=== PATIENT | male | born 1945 | race Caucasian/White ===

== ENCOUNTER 2018-12-21 07:25 | Emergency (ER) | payer OTHER, SELFPAY ==
[2018-12-21 07:28] VITALS: BP 141/78; PULSE 72; RESP 15; TEMP 36.6; O2SAT 97
--- NOTE | 2018-12-21 07:53 | ED.GENADUL_ITS ---
Discharge Plan Disposition Patient Disposition: HOME Condition: Stable Discharge Details Chief Complaint: RashLesion Clinical Impression: Rash Primary Care Provider: Natacha Lynch ED Provider: Alena Graham Home Meds and New Rx's Prescriptions: New permethrin 5 % cream 1 applic TP Q14D 0 Days Qty: 60 RF: 0 prednisone 10 mg tablet See Rx Instructions .ROUTE .COMPLEX Qty: 42 RF: 0 Continued atenolol 25 mg tablet 25 mg PO DAILY RF: 0 ibuprofen 600 mg tablet 600 mg PO TID PRNRF: 0 clotrimazole 1 % cream 1 applic TP BID PRNRF: 0 amlodipine 5 mg tablet 5 mg PO DAILY RF: 0 atorvastatin 10 mg tablet 10 mg PO QPM RF: 0 fluticasone propionate 50 mcg/actuation spray,suspension 1 spray KENYA BID RF: 0 triamcinolone acetonide 0.5 % cream 1 applic TP DAILY PRNRF: 0 vit A and D3 in cod liver oil [cod liver oil] 1 EACH capsule 1 cap PO DAILY RF: 0 psyllium husk [Metamucil] 0.52 GM capsule 6 cap PO DAILY RF: 0 aspirin [Aspir-81] 81 MG tablet,delayed release (DR/EC) 81 mg PO HS RF: 0 Centrum Silver 1 EACH tablet 1 tab PO DAILY RF: 0 Discharge Instructions Instructions: Poison Shannan (ED), Scabies (ED), Acute Rash (ED) Additional Instructions: Take Benadryl as needed and directed for itching. Use the permethrin cream as directed. If you have no relief in symptoms, start the steroids and take until finished. Follow-up with your primary care doctor in 2 days for reevaluation. Return immediately to the emergency department if you develop any worsening or new concerning symptoms. Discharge Data Discharge Date/Time-TO BE ENTERED AT DEPARTURE: 12/21/18 08:08 Discharge Physician: Alena Graham Medical Decision Making 73-year-old male who presents with pruritic rash to torso and upper extremities for the past week. States the papules have come and gone and that he wakes up with new bumps each morning. States he feels like these are appear consistent with bites and he is concerned about scabies. Denies any other new exposures or travel. Denies fever. Differential diagnoses includes bug bites, poison dermatitis, other unknown contact dermatitis or less likely scabies. There are scattered papules to extremities and torso in addition to clustered pa pules. Most likely appears consistent with poison shannan. He denies any exposure to poison shannan, but does have 3 dogs and may have come in contact with this. Rash does not appear consistent with scabies as there is no linear rash c/w burrowing or within webspaces of hands or complaint of rash in groin or feet. Patient is requesting treatment for scabies. We will send home with a prescription for permethrin. He is instructed to wash all his bedding and towels. He is instructed that if symptoms do not improve or worsen, to start the steroids. He is instructed to follow-up with his primary care doctor in 2 days and to return here if worse. HPI General Mode of arrival: ambulatory . Date/Time Provider Initiated Documentation: 12/21/18 07:30 . Limitations to Documentation: no limitations . Information obtained by: patient . HPI Narrative: Patient is a 73-year-old male who presents the ED with a pruritic rash for the past 2 weeks. He states that every morning he wakes up and finds a few more bumps which he considers bites. Patient states he feels that the rashes possibly due to scabies. States he has 3 dogs at home including a new puppy who he is concerned who may have this. Denies any known exposure to poison shannan, new soaps, new detergents, new lotions, recent travel, fever, cold-like symptoms, chest pain or abdominal pain. He has not used any medication for his symptoms yet. Related Data Home Medications Medication Instructions Recorded Confirmed vit A and D3 in cod liver oil [cod 1 cap PO DAILY 10/07/12 12/21/18 liver oil] Centrum Silver 1 tab PO DAILY 03/30/13 12/21/18 aspirin [Aspir-81] 81 mg PO HS 03/30/13 12/21/18 psyllium husk [Metamucil] 6 cap PO DAILY 07/24/17 12/21/18 amlodipine 5 mg tablet 5 mg PO DAILY 03/04/18 12/21/18 atenolol 25 mg tablet 25 mg PO DAILY 03/04/18 12/21/18 atorvastatin 10 mg tablet 10 mg PO QPM tab 03/04/18 12/21/18 clotrimazole 1 % topical cream 1 applic TP BID PRN 03/04/18 12/21/18 fluticasone propionate 50 1 spray KENYA BID gm 03/04/18 12/21/18 mcg/actuation nasal spray,suspension ibuprofen 600 mg tablet 600 mg PO TID PRN 03/04/18 12/21/18 triamcinolone acetonide 0.5 % 1 applic TP DAILY PRN 03/04/18 12/21/18 topical cream permethrin 1 applic TP Q14D 0 Days #60 gm 12/21/18 prednisone See Rx Instructions .ROUTE 12/21/18 .COMPLEX #42 tab Previous Rx's Medication Instructions Recorded permethrin 1 applic TP Q14D 0 Days #60 gm 12/21/18 prednisone See Rx Instructions .ROUTE 12/21/18 .COMPLEX #42 tab Allergies Allergy/AdvReac Type Severity Reaction Status Date / Time tomato Allergy Hives Unverified 12/21/18 07:35 General Stated Complaint: RashLesion HEVER: 4 Review of Systems Review of Systems All systems reviewed & are unremarkable except as noted in HPI and below Constitutional Reports as per HPI, Denies chills and Denies fever(s) Eyes Denies blurry vision ENT Denies dizziness, Denies sore throat and Denies throat swelling Cardiovascular Denies chest pain and Denies dyspnea Respiratory Denies cough and Denies dyspnea Gastrointestinal Denies abdominal pain, Denies diarrhea and Denies vomiting Genitourinary Denies hematuria and Denies dysuria Musculoskeletal Denies back pain and Denies numbness Integumentary/Breasts Denies lesions and Denies rash Neurologic Denies dizziness, Denies focal weakness and Denies numbness Allergic/Immunologic Denies throat swelling FORMERLY [facility], [facility]–1983 Medical History HTN (hypertension) (Chronic) High cholesterol (Chronic) Surgical History History of adenoidectomy (Acute) History of prostate biopsy (Acute) History of tonsillectomy (Chronic) Tonsillectomy and adenoidectomy Family History Mother Essential hypertension Leukemia Stroke Father Essential hypertension Heart disease Neoplasm Paternal Grandfather Essential hypertension Heart disease Paternal Grandmother Heart disease Maternal Grandfather No problems noted. Maternal Grandmother No problems noted. Social History Smoking/Tobacco Use Status: Former Tobacco Use Quit Date: 06/24/73 Alcohol Intake: current Alcohol Intake frequency: a few times a week Alcohol type: beer, wine and hard liquor Drug use: Never Substance use type: does not use Household members: spouse and other Details: 2 Pets and animals: Yes Pets and animals: dog(s) Sexually active: Yes Do you think of yourself as: straight/heterosexual Current gender identity: male What is your relationship status?: How often do you talk on the phone with friends or family?: three or more times per week How often do you get together with friends or relatives?: twice per week How often do you attend advent or baptist services?: 4 or more times per year Do you belong to any clubs or organized social groups?: yes Panel score (0-1 are the most socially isolated patients): 4 What type of physical activity do you participate in: walking Duration: 30-45 minutes/day Frequency: 1-2 times per week Xiao/Pentecostalism: Caodaism Special xiao needs: No Do you feel safe at home: Yes Do you feel safe in your relationship?: Yes Exam Const General: cooperative, healthy appearing and no acute distress HENMT Head: normal to inspection Mouth: oral mucosae normal Eyes General: appearance normal, both eyes and all related structures Neck Neck: normal visual inspection Resp Effort & Inspection: normal respiratory effort and able to speak in complete sentences Cardio Rate: regular rate Skin Other: Scattered erythematous papules noted to bilateral upper extremities anterior posterior chest and back. Scattered areas appear clustered with vesicles and crusting. No abscess, drainage or bleeding. Neuro General: alert, awake and oriented x3 Motor: muscle tone normal throughout Extrem General: normal to inspection and full ROM Psych Appearance: grossly normal Affect: normal affect Course Vital Signs Temperature 97.9 F 12/21/18 07:28 Pulse 72 12/21/18 07:28 Respiratory Rate 15 12/21/18 07:28 Blood Pressure 141/78 H 12/21/18 07:28 Pulse Oximetry 97 12/21/18 07:28 Temperature 97.9 F 12/21/18 07:28 Temperature Source Temporal Artery Scan 12/21/18 07:28 Pulse 72 12/21/18 07:28 Respiratory Rate 15 12/21/18 07:28 Respiratory Effort Non-Labored 12/21/18 07:34 Blood Pressure 141/78 H 12/21/18 07:28 Blood Pressure Position Sitting 12/21/18 07:28 Pulse Oximetry 97 12/21/18 07:28 Oxygen Delivery Method Room Air 12/21/18 07:28 Oxygen Flow Rate 0 12/21/18 07:28 Pain Level 0 12/21/18 07:28
== END 2018-12-21 08:08 | disposition home or self-care (01) ==
LOC: ER 08:06
PROVIDERS: Emergency Provider Physician Assistant; PCP Family Medicine
DX: L23.7 Allergic contact dermatitis due to plants, except food (principal)
CPT/HCPCS: 99283

== ENCOUNTER 2022-09-09 09:23 | Emergency (ER) | payer MEDICARE, SELFPAY ==
[2022-09-09 09:27] VITALS: BP 136/80; PULSE 83; RESP 18; O2SAT 97
--- NOTE | 2022-09-09 09:43 | W.ED.GENAD ---
Discharge Plan Disposition Patient Disposition: Home Condition: Stable Discharge Details Clinical Impression: Abscess Primary Care Provider: Benja Etienne ED Provider: Kenny Washington Scott Meds and New Rx's Prescriptions: New clindamycin HCl 150 mg capsule 450 mg PO TID 7 Days Qty: 63 0RF Continued atenolol 25 mg tablet 25 mg PO DAILY ibuprofen 600 mg tablet 600 mg PO TID PRN clotrimazole 1 % cream 1 applic TP BID PRN atorvastatin 10 mg tablet 10 mg PO QPM triamcinolone acetonide 0.5 % cream 1 applic TP DAILY PRN fluticasone propionate 50 mcg/actuation spray,suspension 1 spray KENYA DAILY PRN cholecalciferol (vitamin D3) 1,000 unit capsule 1,000 unit PO DAILY vit A and D3 in cod liver oil [cod liver oil] 1 EACH capsule 1 cap PO DAILY psyllium husk [Metamucil] 0.52 GM capsule 6 cap PO DAILY amlodipine 10 mg tablet 10 mg PO DAILY Qty: 90 0RF Centrum Silver 1 EACH tablet 1 tab PO DAILY Discharge Instructions Instructions: Abscess (ED) Additional Instructions: I drained a significant amount of pus from the cyst follow up as you are already planning to have it removed if you feel more ill, have severe worsening pain or fevers return to the emergency department Medical Decision Making 76 yo male who states he's had a cyst on his posterior left neck for months and trying to have it removed as an outpatient comes in with 2-3 days of it being more painful and swollen. No fevers, chills, drainage. HE arrives stable and appears well on exam. HE has a 1cm fluctuance on the left posterior lateral neck with a white head on it and 2mm surrounding erythema. Bedside u/s shows clear fluid pocket. No crepitus and no systemic symptoms to suggest nec fasc or sepsis. HE consents to having an I and D which was done without complications and returned significant amount of pus. Will place on clindamycin and advised to f/u with pcp, return precautions given Differential Diagnosis Differential Diagnosis: abscess, cyst HPI General Mode of arrival: ambulatory. Date/Time Provider Initiated Documentation: 09/09/22 09:27. Limitations to Documentation: no limitations. Information obtained by: patient. History of Present Illness 76 year old M presents to the emergency department with the chief complaint of neck lesion, described as moderate, Patient reports no radiation. Patient started experiencing this month(s) (5) No relieving factors improve symptom(s), No exacerbating factors reported . Patient notes no other symptoms.. Patient did receive the following treatments prior to arrival, none Related Data Home Medications Medication Instructions Recorded Confirmed vitamins A and D3 in cod liver oil 1 cap PO DAILY 10/07/12 09/09/22 1,250 unit-135 unit capsule (cod liver oil) [id number]-zqk-ggdjo acid 0.4 1 tab PO DAILY 03/30/13 09/09/22 mg-lycopene 300 mcg-lutein 250 mcg tablet (Centrum Silver) psyllium husk 0.52 gram capsule 6 cap PO DAILY 07/24/17 09/09/22 (Metamucil) atenolol 25 mg tablet 25 mg PO DAILY 03/04/18 09/09/22 atorvastatin 10 mg tablet 10 mg PO QPM 03/04/18 09/09/22 clotrimazole 1 % topical cream 1 applic topical BID PRN 03/04/18 09/09/22 ibuprofen 600 mg tablet 600 mg PO TID PRN 03/04/18 09/09/22 triamcinolone acetonide 0.5 % 1 applic topical DAILY PRN 03/04/18 09/09/22 topical cream cholecalciferol (vitamin D3) 25 1,000 unit PO DAILY 01/08/19 09/09/22 mcg (1,000 unit) capsule fluticasone propionate 50 1 spray intranasal DAILY PRN 01/08/19 09/09/22 mcg/actuation nasal spray,suspension amlodipine 10 mg tablet 10 mg PO DAILY #90 tabs 08/27/19 09/09/22 clindamycin HCl 150 mg capsule 450 mg PO TID 7 days #63 caps 09/09/22 Previous Rx's Medication Instructions Recorded amlodipine 10 mg tablet 10 mg PO DAILY #90 tabs 08/27/19 clindamycin HCl 150 mg capsule 450 mg PO TID 7 days #63 caps 09/09/22 Allergies Allergy/AdvReac Type Severity Reaction Status Date / Time tomato Allergy Hives Unverified 09/09/22 09:32 General Stated Complaint: Cellulitis HEVER: 3 Review of Systems All systems reviewed & are unremarkable except as noted in HPI and below Constitutional Constitutional: Denies chills, Denies fever(s) and Denies weakness Cardiovascular Cardiovascular: Denies chest pain and Denies dyspnea Respiratory Respiratory: Denies cough and Denies dyspnea Gastrointestinal Gastrointestinal: Denies abdominal pain, Denies nausea and Denies vomiting Genitourinary Genitourinary: Denies dysuria Musculoskeletal Musculoskeletal: Denies joint swelling Neurologic Neurologic: Denies weakness [facility] All Active Problems (Updated 09/09/22 @ 10:01 by Kenny Washington MD) Abscess (Acute) Allergic rhinitis (Acute) Pruritus ani (Acute) Diagnosed managed by dermatology-treated with as needed topical steroid Health maintenance examination (Acute) Patient receives much of his primary care including routine lab work and follow-up on specialists with the [place] in [facility], and [facility] 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 Hearing loss (Acute) hearing aids Diverticulitis of intestine (Acute 12/06/14) Remote history Hyperlipidemia (Acute) Essential hypertension (Acute 09/21/13) Actinic keratosis (Acute) Medical History (Updated 09/09/22 @ 10:01 by Kenny Washington MD) High cholesterol HTN (hypertension) Surgical History (Updated 08/25/21 @ 08:30 by Mak Pepe MD) History of adenoidectomy History of prostate biopsy History of tonsillectomy Tonsillectomy and adenoidectomy Family History (Updated 08/17/20 @ 11:10 by Carolina Muñoz) Mother , 78 Essential hypertension Leukemia Stroke Father , 95 Essential hypertension Heart disease Bladder cancer Paternal Grandfather Essential hypertension Heart disease Paternal Grandmother , 93 Heart disease Maternal Grandfather No problems noted. Maternal Grandmother No problems noted. Son No problems noted. Daughter No problems noted. Son No problems noted. Social History (Updated 08/26/21 @ 12:02 by Deepali Levy) Smoking/Tobacco Use Status: Former Tobacco Use tobacco type: pipe Quit Date: 06/24/73 Tobacco: How many years used: 5 Second Hand Exposure: Yes Smoking risk assessment performed?: Yes Alcohol Intake: current Alcohol Intake frequency: holidays/special occasions only Alcohol type: beer, wine and hard liquor Drug use: Never Substance use type: does not use Caregiver/Support person: No Household members: spouse Housing: house Communication Needs: Hard of Hearing Do you need help understanding health information?: Never Pets and animals: Yes Pets and animals: dog(s) Sexually active: No Do you think of yourself as: straight/heterosexual What is your relationship status?: How often do you talk on the phone with friends or family?: three or more times per week How often do you get together with friends or relatives?: decline to answer How often do you attend caodaism or jainism services?: 4 or more times per year Do you belong to any clubs or organized social groups?: yes Panel score (0-1 are the most socially isolated patients): 4 What type of physical activity do you participate in: walking Duration: 30-45 minutes/day Frequency: 3-4 times per week Xiao/Catholic: Latter Day Special xiao needs: No Seatbelt use: always Helmet use: No Drive intox or ride w/intox short haul driver: No Do you feel safe at home: Yes Do you feel safe in your relationship?: Yes Exam Const General: no acute distress Orientation: alert HENMT Head: normal to inspection Ears: external ears normal General nose exam: external nose normal Mouth: moist mucous membranes Eyes General: appearance normal, both eyes and all related structures Neck Neck: full ROM, no lymphadenopathy and no meningeal signs Resp Effort & Inspection: normal respiratory effort and able to speak in complete sentences Cardio Rate: regular rate Skin General skin exam: elasticity normal Neuro General: patient alert and patient oriented x3 Extrem General: normal to inspection Psych Mental Status: mental status grossly normal Course Vital Signs Vital signs: Vital Signs Pulse 83 09/09/22 09:27 Respiratory Rate 18 09/09/22 09:27 Blood Pressure 136/80 09/09/22 09:27 Pulse Oximetry 97 09/09/22 09:27 Pulse 83 09/09/22 09:27 Respiratory Rate 18 09/09/22 09:27 Respiratory Effort Normal, Non-Labored 09/09/22 09:32 Blood Pressure 136/80 09/09/22 09:27 Blood Pressure Position Sitting 09/09/22 09:27 Pulse Oximetry 97 09/09/22 09:27 Oxygen Delivery Method Room Air 09/09/22 09:27 Oxygen Flow Rate 0 09/09/22 09:27 Procedures Abscess I/D Site: Neck Side (if applicable): Left Local Anesthetic: Lidocaine 1% and With Epi Amount of anesthesia used (mL): 3 Technique: Incised with #11 Blade Amount of fluid expressed (mL): 5 (purulent material) Irrigation: Yes Packing used?: None POCUS Exam (ED) Limited Soft Tissue Exam DATE OF EXAM: 09/09/22 TIME OF EXAM: 09:44 PROVIDER THAT PERFORMED THE STUDY: Kenny Washington IS THIS A REPEAT EXAM DURING THIS ENCOUNTER: No LOCATION OF EXAM: Neck/left side REASON FOR EXAM: Abscess VISUALIZED STRUCTURES: Skin and Subcutaneous tissue PERTINENT FINDINGS/IMPRESSION: Abscess left neck posterior . Exam Complete DIFFERENTIAL DIAGNOSES: abscess, cyst, cellulitis
== END 2022-09-09 10:11 | disposition home or self-care (01) ==
PROVIDERS: Emergency Provider Emergency Medicine; PCP Family Medicine
DX: L02.212 Cutaneous abscess of back [any part, except buttock and flank] (principal)
CPT/HCPCS: 10060; 76536; 99284; 99283

== ENCOUNTER → 2022-09-18 09:10 | Outpatient (BNVA) | payer MEDICARE, SELFPAY | PROVIDERS: PCP Family Medicine; Referring Provider Family Medicine; Visit Provider Surgery | DX: L72.3 Sebaceous cyst (principal); L08.9 Local infection of the skin and subcutaneous tissue, unspecified | CPT/HCPCS: 99212 ==

== ENCOUNTER → 2022-10-16 10:43 | Outpatient (BNVA) | payer MEDICARE, SELFPAY | PROVIDERS: PCP Family Medicine; Referring Provider Family Medicine; Visit Provider Surgery | DX: Z48.02 Encounter for removal of sutures (principal); L72.3 Sebaceous cyst; L08.9 Local infection of the skin and subcutaneous tissue, unspecified | CPT/HCPCS: 99212 ==

== ENCOUNTER 2023-02-28 17:11 | Emergency (ER) | payer MEDICARE, SELFPAY ==
[2023-02-28 17:15] VITALS: BP 158/74; PULSE 78; RESP 20; TEMP 36.4; O2SAT 95
--- NOTE | 2023-02-28 17:30 | DI.RAD_ITS ---
Exam(s) XR WRIST LT COMPLETE EXAM: XR WRIST LT COMPLETE CLINICAL HISTORY: left wrist pain. TECHNIQUE: 2D digital imaging was performed of the left wrist. Three images were obtained. PA, obl ique and lateral views were obtained. COMPARISON: No exams were available for comparison FINDINGS: BONES: There is an acute intra-articular comminuted fracture of the distal radius. The fracture is i mpacted. No bony destructive lesion is seen. JOINTS: The carpal bones are normally aligned. There are marked degenerative changes of the 1st CMC j oint characterized by joint space narrowing and osteophytes. SOFT TISSUE: Soft tissue swelling of the wrist. IMPRESSION: There is an acute comminuted impacted and intra-articular fracture of the distal radius. DATA REPOSITORY: RADIATION DOSE DELIVERED:
[2023-02-28] MEDS: MORPHine 10 MG/ML VIAL 2 MG IVP (17:47)
--- NOTE | 2023-02-28 18:00 | DI.CT_ITS ---
Exam(s) CT UPPER EXTREMITY LT WO EXAM: CT UPPER EXTREMITY LT WO CLINICAL HISTORY: fracture wrist. TECHNIQUE: Imaging Protocol: Axial computed tomography images with coronal and sagittal reformatted images were created and reviewed. COMPARISON: CR XR WRIST LT COMPLETE from 02/28/2023 FINDINGS: Bones: There is a comminuted intra-articular fracture of the distal radius. The fracture is impacte d. There is anterior displacement of the wrist relative to the distal radius. Bony alignment is sat isfactory. No cellulitic or osteomyelitic changes are identified. Degenerative changes are seen in the wrist which include bony hypertrophic changes and joint space narrowing. Subchondral cysts are p resent throughout the bones. No lytic or sclerotic lesions are identified. Soft Tissues: Soft tissue swelling is seen in the wrist. IMPRESSION: 1. There is a comminuted intra-articular fracture of the distal radius which is impacted. There is a nd mild anterior subluxation of the wrist relative to the distal radius 2. Findings were discussed with the emergency department on the date of the examination. RADIATION DOSE DELIVERED: 147.1mGy.cm Total DLP 147.1mGy.cm Total DLP DATA REPOSITORY: All CT scans at this facility are submitted to the National Radiology Data Registry (NRDR) Dose Index Registry (DIR) with the [employer] ([employer]). RADIATION OPTIMIZATION: All CT scans at this facility use at least one of these dose optimization te chniques: automated exposure control; mA and/or kV adjustment per patient size (includes targeted exa ms where dose is matched to clinical indication); or iterative reconstruction.
--- NOTE | 2023-02-28 22:43 | ED.GENADUL_ITS ---
Discharge Plan Disposition Patient Disposition: Home Condition: Stable Discharge Details Clinical Impression: Fracture of left wrist Primary Care Provider: Benja Etienne ED Provider: Laura Thao Home Meds and New Rx's Prescriptions: Continued atenolol 25 mg tablet 25 mg PO DAILY ibuprofen 600 mg tablet 600 mg PO TID PRN clotrimazole 1 % cream 1 applic TP BID PRN atorvastatin 10 mg tablet 10 mg PO QPM triamcinolone acetonide 0.5 % cream 1 applic TP DAILY PRN doxycycline hyclate 100 mg capsule 200 mg PO ONCE Qty: 2 0RF Rx Instructions: take at once cholecalciferol (vitamin D3) 1,000 unit capsule 1,000 unit PO DAILY vit A and D3 in cod liver oil [cod liver oil] 1 EACH capsule 1 cap PO DAILY psyllium husk [Metamucil] 0.52 GM capsule 6 cap PO DAILY amlodipine 10 mg tablet 10 mg PO DAILY Qty: 90 0RF Centrum Silver 1 EACH tablet 1 tab PO DAILY Discharge Instructions Additional Instructions: Take 1/2 tablet to 1 full tab of oxycodone as needed for pain, do not operate your vehicle for 8 hours after taking this medication May take Tylenol 650 every 6 hours as needed for pain, apply ice, elevate Wear sling when up and about If you elevate your wrist and apply ice it is painful and will help your symptoms No food or drink after 12:00 as you will likely have surgery tomorrow, they will call you to plan your surgery and arrival between 7 and 8 AM, please answer phone Please return earlier should you have dramatic worsening pain, worsening numbness, or with any new or progressing symptoms Referrals: Alonso Lui MD [ [facility] STAFF PHYSICIAN] - Discharge Data Discharge Date/Time-TO BE ENTERED AT DEPARTURE: 02/28/23 19:07 Medical Decision Making This 77-year-old male presents with report of left wrist injury just prior to arrival after he tripped and fell over his dog, he has no additional visible evidence of trauma, GCS 15, alert and oriented, ambulatory with steady gait, no midline cervical spine tenderness, no chest wall tenderness, no back or abdominal tenderness, no visible evidence of lower extremity injury, visible deformity to left wrist, neurovascularly intact, no tenderness left elbow X-ray shows evidence of a intra-articular volar displaced fracture to left wrist, case discussed with Dr. Lui, patient will need operative intervention, he will be n.p.o. after this night, he was placed in a volar splint by me, he remained neurovascularly intact pre and postprocedure, 4 oxycodone were distributed at time of discharge Return precautions reviewed and patient expressed understanding HPI General Date/Time Provider Initiated Documentation: 02/28/23 17:19 . HPI Narrative: This 77-year-old male presents with report of falling on his left wrist while walking the dog. Denies any additional injuries. States he has pain and deformity. Denies numbness or tingling Related Data Home Medications Medication Instructions Recorded Confirmed vitamins A and D3 in cod liver oil 1 cap PO DAILY 10/07/12 11/23/22 1,250 unit-135 unit capsule (cod liver oil) unynotmp-vrs-ujkfd acid 0.4 1 tab PO DAILY 03/30/13 11/23/22 mg-lycopene 300 mcg-lutein 250 mcg tablet (Centrum Silver) psyllium husk 0.52 gram capsule 6 cap PO DAILY 07/24/17 11/23/22 (Metamucil) atenolol 25 mg tablet 25 mg PO DAILY 03/04/18 11/23/22 atorvastatin 10 mg tablet 10 mg PO QPM 03/04/18 11/23/22 clotrimazole 1 % topical cream 1 applic topical BID PRN 03/04/18 11/23/22 ibuprofen 600 mg tablet 600 mg PO TID PRN 03/04/18 11/23/22 triamcinolone acetonide 0.5 % 1 applic topical DAILY PRN 03/04/18 11/23/22 topical cream cholecalciferol (vitamin D3) 25 1,000 unit PO DAILY 01/08/19 11/23/22 mcg (1,000 unit) capsule amlodipine 10 mg tablet 10 mg PO DAILY #90 tabs 08/27/19 11/23/22 doxycycline hyclate 100 mg capsule 200 mg PO ONCE #2 caps 11/23/22 11/23/22 Previous Rx's Medication Instructions Recorded amlodipine 10 mg tablet 10 mg PO DAILY #90 tabs 08/27/19 doxycycline hyclate 100 mg capsule 200 mg PO ONCE #2 caps 11/23/22 Allergies Allergy/AdvReac Type Severity Reaction Status Date / Time lisinopril Allergy Mild Other (See Verified 11/23/22 08:56 Comment) tomato Allergy Hives Unverified 11/23/22 08:56 General Stated Complaint: Orthopedic HEVER: 4 PFSH All Active Problems (Updated 02/28/23 @ 18:54 by DENISE Hopkins) Fracture of left wrist (Acute) Black head (Acute) Infected sebaceous cyst of skin (Acute) Sensorineural hearing loss (Acute) Arthritis (Acute) Sebaceous cyst (Acute) Allergic rhinitis (Acute) Pruritus ani (Acute) Diagnosed managed by dermatology-treated with as needed topical steroid Health maintenance examination (Acute) Patient receives much of his primary care including routine lab work and follow-up on specialists with the [place] in [facility], and [facility] 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 Hearing loss (Acute) hearing aids Diverticulitis of intestine (Acute 12/06/14) Remote history Hyperlipidemia (Acute) Essential hypertension (Acute 09/21/13) Actinic keratosis (Acute) Medical History (Updated 02/28/23 @ 18:54 by DENISE Hopkins) High cholesterol HTN (hypertension) Surgical History History of adenoidectomy History of prostate biopsy History of tonsillectomy Tonsillectomy and adenoidectomy Family History Mother , 78 Essential hypertension Leukemia Stroke Father , 95 Essential hypertension Heart disease Bladder cancer Paternal Grandfather Essential hypertension Heart disease Paternal Grandmother , 93 Heart disease Maternal Grandfather No problems noted. Maternal Grandmother No problems noted. Son No problems noted. Daughter No problems noted. Son No problems noted. Social History Smoking/Tobacco Use Status: Former Tobacco Use tobacco type: pipe Quit Date: 06/24/73 Tobacco: How many years used: 5 Second Hand Exposure: Yes Smoking risk assessment performed?: Yes Alcohol Intake: current Alcohol Intake frequency: holidays/special occasions only Alcohol type: beer, wine and hard liquor Drug use: Never Substance use type: does not use Caregiver/Support person: No Household members: spouse Housing: house Communication Needs: Hard of Hearing Do you need help understanding health information?: Never Pets and animals: Yes Pets and animals: dog(s) Sexually active: No Do you think of yourself as: straight/heterosexual What is your relationship status?: How often do you talk on the phone with friends or family?: three or more times per week How often do you get together with friends or relatives?: decline to answer How often do you attend yarsanism or hoahaoism services?: 4 or more times per year Do you belong to any clubs or organized social groups?: yes Panel score (0-1 are the most socially isolated patients): 4 What type of physical activity do you participate in: walking Duration: 30-45 minutes/day Frequency: 3-4 times per week Xiao/Pentecostal: Lutheran Special xiao needs: No Seatbelt use: always Helmet use: No Drive intox or ride w/intox lumber stacker driver: No Do you feel safe at home: Yes Do you feel safe in your relationship?: Yes Course Vital Signs Vital signs: Vital Signs Temperature 36.4 C L 02/28/23 17:15 Pulse 78 02/28/23 17:15 Respiratory Rate 02/28/23 17:15 Blood Pressure 158/74 H 02/28/23 17:15 Pulse Oximetry 95 02/28/23 17:15 Temperature 36.4 C L 02/28/23 17:15 Pulse 78 02/28/23 17:15 Respiratory Rate 02/28/23 17:15 Respiratory Effort Normal, Non-Labored 02/28/23 17:25 Blood Pressure 158/74 H 02/28/23 17:15 Blood Pressure Position Supine 02/28/23 17:15 Pulse Oximetry 95 02/28/23 17:15 Oxygen Delivery Method Room Air 02/28/23 17:15 Oxygen Flow Rate 0 02/28/23 17:15 Pain Level 9 02/28/23 17:15
--- NOTE | 2023-03-01 09:52 | W.ORTHOCONSU ---
Date of service: 03/01/23 Time of Service: 09:52 Assessment and Plan Assessment and plan (1) Fracture of left distal radius: Status: Acute Assessment and plan: 77-year-old male with displaced intra-articular distal radius volar Massey type fx Mechanical fall last night while letting the dog out. Isolated left wrist pain and deformity. Some discomfort at rest in splint but has been largely tolerable. Denies any numbness tingling or carpal tunnel symptoms. Denies any pre-existing wrist issues. Denies any medical problems except for hypertension and agent orange exposure affecting his right sided diaphragm. He is limited walking outside in a distance due to shortness of breath. Cardiac testing negative. [id number]. Left wrist in volar splint. Clean dry intact. Exam below splint in operating room. Brisk cap refill distal to splint. Sensation intact all fingers and thumb without any numbness or tingling at all. Demonstrates intact motor flexion extension all digits and thumb as well with mild discomfort of the central digits. No proximal injuries. No other complaints or concerns. X-rays and CT scan reviewed done last night show complex, intra-articular volar shear fracture type fracture with the carpus well volar to the radius intact distal ulna with cysts. Significant thumb base arthrosis. Discussed thoroughly. Unfortunately, unstable fracture pattern not really amenable to closed treatment. No signs or symptoms of carpal tunnel syndrome or compartment syndrome. Reviewed pulmonary risks in addition to usual surgical considerations. Plan on long?acting regional anesthetic nerve block as primary anesthetic. Decision to proceed with surgery today left distal radius open reduction internal fixation The risks, benefits, and alternatives were thoroughly discussed. Patient was counseled regarding pain management, expected postoperative course, and recovery timeline. All questions were answered. Informed consent was obtained. Agree and understand treatment plan. Follow up 10-14 days after surgery. Will call if any changes or concerns. Breathing comfortably on room air. No coughs or wheezes. Per nursing evaluation, the lungs are clear to auscultation with diminished sounds on the right side. 2+ right radial pulse. Regular rate and rhythm. [facility] All Active Problems Fracture of left distal radius (Acute 02/28/23) Actinic keratosis (Acute) Essential hypertension (Acute 09/21/13) Hyperlipidemia (Acute) Diverticulitis of intestine (Acute 12/06/14) Remote history Hearing loss (Acute) hearing aids Benign prostate hyperplasia (Chronic) assoc with elevated psa-0 evaluation with the [place] and [facility] urology status post multiple prostate biopsies and MRI which were benign. 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 status post evaluation with pulmonary at [facility] Health maintenance examination (Acute) Patient receives much of his primary care including routine lab work and follow-up on specialists with the [place] in [facility], and [facility] Pruritus ani (Acute) Diagnosed managed by dermatology-treated with as needed topical steroid Allergic rhinitis (Acute) Sebaceous cyst (Acute) Arthritis (Acute) Sensorineural hearing loss (Acute) Infected sebaceous cyst of skin (Acute) Black head (Acute) Medical History High cholesterol HTN (hypertension) Surgical History History of adenoidectomy History of colonoscopy History of prostate biopsy History of tonsillectomy Tonsillectomy and adenoidectomy Family History Mother , 78 Essential hypertension Leukemia Stroke Father , 95 Essential hypertension Heart disease Bladder cancer Paternal Grandfather Essential hypertension Heart disease Paternal Grandmother , 93 Heart disease Maternal Grandfather No problems noted. Maternal Grandmother No problems noted. Son No problems noted. Daughter No problems noted. Son No problems noted. Social History Smoking/Tobacco Use Status: Former Tobacco Use tobacco type: pipe Quit Date: 06/24/73 Tobacco: How many years used: 5 Second Hand Exposure: Yes Smoking risk assessment performed?: Yes Alcohol Intake: current Alcohol Intake frequency: 3 or more drinks per day Alcohol type: beer, wine and hard liquor Drug use: Never Substance use type: does not use Caregiver/Support person: No Household members: spouse Housing: house Communication Needs: Hard of Hearing Do you need help understanding health information?: Never Pets and animals: Yes Pets and animals: dog(s) Sexually active: No Do you think of yourself as: straight/heterosexual What is your relationship status?: How often do you talk on the phone with friends or family?: three or more times per week How often do you get together with friends or relatives?: decline to answer How often do you attend scientologist or advent services?: 4 or more times per year Do you belong to any clubs or organized social groups?: yes Panel score (0-1 are the most socially isolated patients): 4 What type of physical activity do you participate in: walking Duration: 30-45 minutes/day Frequency: 3-4 times per week Xiao/Protestant: Zoroastrianism Special xiao needs: No Seatbelt use: always Helmet use: No Drive intox or ride w/intox 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
== END 2023-02-28 19:07 | disposition home or self-care (01) ==
PROVIDERS: Emergency Provider Physician Assistant; PCP Family Medicine
DX: W01.0XXA Fall on same level from slipping, tripping and stumbling without subsequent striking against object, initial encounter; M25.532 Pain in left wrist; S52.572A Other intraarticular fracture of lower end of left radius, initial encounter for closed fracture
CPT/HCPCS: 29125; 96374; 99284; 99285; 73110; 73200; J2270

== ENCOUNTER 2023-03-01 08:37 | Day surgery (SDC) | payer MEDICARE, SELFPAY ==
[2023-03-01] VITALS (12 sets, daily range): BP systolic 105–173; BP diastolic 74–94; PULSE 83–108; RESP 16–25; TEMP 36.6–37.2; O2SAT 93–96; BMI 29.1
[2023-03-01] MEDS: Lactated Ringers 1,000 ML 30 ML IV (10:17)
--- NOTE | 2023-03-01 10:30 | W.ANESPRE ---
General Info Date of Service Date Performed: 03/01/23 Height: 5 ft 10 in Weight: 92.079 kg Body Mass Index (BMI): 29.1 Surgical Procedure: Operation Date: 03/01/23 11:25 Proposed Procedure Side Surgeon p Wrist ORIF Distal Radius Left Alonso Lui MD Meds Allergies and Home Medications Allergies Allergy/AdvReac Type Severity Reaction Status Date / Time lisinopril Allergy Mild Other (See Verified 11/23/22 08:56 Comment) tomato Allergy Hives Unverified 11/23/22 08:56 Home Medication Medication Instructions Recorded vitamins A and D3 in cod liver oil 1 cap PO DAILY 10/07/12 1,250 unit-135 unit capsule (cod liver oil) pseweeix-nnk-whzup acid 0.4 1 tab PO DAILY 03/30/13 mg-lycopene 300 mcg-lutein 250 mcg tablet (Centrum Silver) psyllium husk 0.52 gram capsule 6 cap PO DAILY 07/24/17 (Metamucil) atenolol 25 mg tablet 25 mg PO DAILY 03/04/18 atorvastatin 10 mg tablet 10 mg PO QPM 03/04/18 clotrimazole 1 % topical cream 1 applic topical BID PRN 03/04/18 ibuprofen 600 mg tablet 600 mg PO TID PRN 03/04/18 triamcinolone acetonide 0.5 % 1 applic topical DAILY PRN 03/04/18 topical cream cholecalciferol (vitamin D3) 25 1,000 unit PO DAILY 01/08/19 mcg (1,000 unit) capsule amlodipine 10 mg tablet 10 mg PO DAILY #90 tabs 08/27/19 Current Visit Medications: Current Medications Generic Name Dose Route Start Last Admin Trade Name Freq PRN Reason Stop Dose Admin Ringer's Solution 1,000 mls @ 30 mls/hr 03/01/23 06:00 03/01/23 10:17 IV 03/31/23 23:59 30 mls/hr INFUSION PEDRITO Administration Cefazolin Sodium/Dextrose 2 gm in 50 mls @ 100 mls/hr 03/01/23 07:00 Ancef Duplex IVPB 03/01/23 16:00 PREOP PEDRITO IV Miscellaneous Supplies 1 each 03/01/23 06:00 Iv Access IV 03/31/23 23:59 DIRECTED PEDRIOT Sodium Chloride 0 ml 03/01/23 06:00 Normal Saline Flush 10 Ml Syr IV 03/31/23 23:59 PRN PRN Sodium Chloride 0 ml 03/01/23 06:00 Normal Saline 10 Ml Vial IJ 03/31/23 23:59 DIRECTED PRN Sterile Water 0 ml 03/01/23 06:00 Water,Injection,Sterile 10 Ml Vial IJ 03/31/23 23:59 DIRECTED PRN PFSH Active Problems Active Problems: Problem Status Onset Code Fracture of left distal radius 02/28/23 S52.502A Actinic keratosis L57.0 Essential hypertension 09/21/13 I10 Hyperlipidemia E78.5 Diverticulitis of intestine 12/06/14 K57.92 Hearing loss H91.90 Benign prostate hyperplasia N40.0 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 Health maintenance examination Z00.00 Pruritus ani L29.0 Allergic rhinitis J30.9 Sebaceous cyst L72.3 Arthritis M19.90 Sensorineural hearing loss H90.5 Infected sebaceous cyst of skin L72.3, L08.9 Black head L70.0 Medical History Medical History High cholesterol HTN (hypertension) Surgical History Surgical History History of adenoidectomy History of colonoscopy History of prostate biopsy History of tonsillectomy Tonsillectomy and adenoidectomy Tobacco Smoking/Tobacco Use Status: Former Tobacco Use Passive smoking exposure: Yes Second hand exposure: Yes Alcohol Alcohol Intake: current Alcohol intake frequency: 3 or more drinks per day Alcohol type: beer, wine and hard liquor Substance Use Substance use: Never Substance use type: does not use Vital Signs and Lab Results Vital Signs Most Recent Vital Signs in EMR: Most Recent Vital Signs Temp Pulse Resp BP Pulse Ox 37.2 C 108 H 18 163/93 H 95 03/01/23 09:02 03/01/23 09:02 03/01/23 09:02 03/01/23 09:02 03/01/23 09:02 Lab Results Blood Type / Crossmatch: No Data to Display Complete Blood Count: No Data to Display Complete Metabolic Panel: No Data to Display Liver Function Panel: No Data to Display Coagulation Panel: No Data to Display Cardiac Panel: No Data to Display Arterial Blood Gas: No Data to Display Venous Blood Gas: No Data to Display Pancreas Panel: No Data to Display Thyroid Panel: No Data to Display Infectious Disease: No Data to Display Blood Cultures: No Data to Display Toxicology Panel: No Data to Display Imaging and Studies Imaging and Studies Study information below may be from another EMR and interpreted by another provider. Please see original notes in EMR for more complete details. Echocardiogram Summary: Patient Name: AUSTYN LARSON #: [id number]: GIULIANO Ordering Provider: Natacha Lynch M.D. : REG CLI Primary Care Provider: Natacha Lynch M.D.Date of Exam: 12/19/17ex: M : 8Age: 72 Exam(s) [id number] US:Echocardiogram Heart *[facility] [place]* *[facility]* [address] [place] [address] Date of study: 12/19/2017 Transthoracic Echocardiography M-mode, complete 2D, complete spectral Doppler, and color Doppler *STUDY CONCLUSIONS* Summary: 1. Left ventricle: The cavity size was normal. Systolic function was normal. The estimated ejection fraction was 60-65%. Diastolic parameters were normal for age. There was no evidence of elevated ventricular filling pressure by Doppler parameters. 2. Mitral valve: There was mild regurgitation. 3. Right ventricle: The cavity size was mildly dilated. Systolic function was mildly reduced. 4. Atrial septum: No defect or patent foramen ovale was identified. 5. Pulmonary arteries: Pulmonary systolic pressure was in the range of 25mm Hg to 35mm Hg. 6. Inferior vena cava: The vessel was normal in size. The respirophasic diameter changes were in the normal range (greater than or equal to 50%), consistent with normal central venous pressure. *PATIENT PRESENTATION* Height: 180.3cm ((71in) ) S/D Pressure: 133 / 78 Weight: 90.7kg ((199.6lb) ) BSA: 2.11m^2 Test start time: 10:10 AM. Test stop time: 11:10 AM. PERFORMING Unknown ORDERING Natacha Lynch REFERRING Natacha Lynch PERFORMING [facility] SUPPLY CHAIN INTERN RT Ozzie Valladares)(CT), CATERINA *PROCEDURE DATA* Procedure information: The patient was identified by two identifiers. This study was interpreted by [facility]. Pertinent images and digital data are archived for permanent storage and are available for subsequent review. No prior study was available for comparison. Study status: Routine. Transthoracic echocardiography. M-mode, complete 2D, complete spectral Doppler, and color Doppler. A Transthoracic Echocardiogram was performed. Scanning was performed from the parasternal, apical, subcostal, and suprasternal notch acoustic windows. Images were obtained using an [id number] cardiac ultrasound machine. Image quality was adequate. Study completion: The patient tolerated the procedure well. *CARDIAC ANATOMY* Left ventricle: The cavity size was normal. Systolic function was normal. The estimated ejection fraction was 60-65%. The tissue Doppler parameters were normal. Diastolic parameters were normal for age. There was no evidence of elevated ventricular filling pressure by Doppler parameters. Aortic valve: Trileaflet. Doppler: There was no stenosis. There was no regurgitation. VTI ratio of LVOT to aortic valve: 0.99. Valve area (VTI): 3.1cm^2. Indexed valve area (VTI): 1.5cm^2/m^2. Peak velocity ratio of LVOT to aortic valve: 0.94. Valve area (Vmax): 3cm^2. Indexed valve area (Vmax): 1.4cm^2/m^2. Mean velocity ratio of LVOT to aortic valve: 0.87. Valve area (Vmean): 2.8cm^2. Indexed valve area (Vmean): 1.3cm^2/m^2. Mean gradient (S): 4.5mm Hg. Peak gradient (S): 8.4mm Hg. Aorta: Aortic root: The aortic root was normal in size. Ascending aorta: The ascending aorta was mildly dilated. Mitral valve: Doppler: There was no evidence for stenosis. There was mild regurgitation. Valve area by pressure half-time: 2.6cm^2. Indexed valve area by pressure half-time: 1.2cm^2/m^2. Peak gradient (D): 2.4mm Hg. Left atrium: The atrium was normal in size. Atrial septum: No defect or patent foramen ovale was identified. Right ventricle: The cavity size was mildly dilated. Systolic function was mildly reduced. Pulmonic valve: Doppler: There was no evidence for stenosis. There was mild regurgitation. Peak gradient (S): 3.1mm Hg. Tricuspid valve: Doppler: There was mild regurgitation. Pulmonary artery: Poorly visualized. Pulmonary systolic pressure was in the range of 25mm Hg to 35mm Hg. Right atrium: The atrium was normal in size. Pericardium: There was no pericardial effusion. Systemic veins: Inferior vena cava: The vessel was normal in size. The respirophasic diameter changes were in the normal range (greater than or equal to 50%), consistent with normal central venous pressure. Measurements Left ventricle Value Reference LV ID, ED, PLAX 4.6 cm 3.5 - 6.0 LV ID, ES, PLAX 2.8 cm 2.1 - 4.0 LV PW thickness, ED, PLAX 0.9 cm LV end-diastolic volume, 1-p A2C 61 ml LV ejection fraction, 1-p A2C 58 % LV end-diastolic volume, 1-p A4C 67 ml LV ejection fraction, 1-p A4C 65 % LV e', lateral 0.143 m/sec LV E/e', lateral 5 LV e', medial 0.067 m/sec LV E/e', medial 12 LV e', average 0.105 m/sec LV E/e', average 7 Ventricular septum Value Reference IVS thickness, ED, PLAX 0.9 cm LVOT Value Reference LVOT ID, A-P 2.0 cm LVOT area 3.2 cm^2 LVOT peak velocity, S 1.36 m/sec LVOT mean velocity, S 0.88 m/sec LVOT VTI, S 27.3 cm LVOT peak gradient, S 7.4 mm Hg LVOT mean gradient, S 3.6 mm Hg Stroke volume (SV), LVOT DP 87 ml Stroke index (SV/bsa), LVOT DP 41 ml/m^2 Aortic valve Value Reference Aortic valve peak velocity, S 1.4 m/sec Aortic valve mean velocity, S 1.01 m/sec Aortic valve VTI, S 27.7 cm Aortic mean gradient, S 4.5 mm Hg Aortic peak gradient, S 8.4 mm Hg VTI ratio, LVOT/AV 0.99 Aortic valve area, VTI 3.1 cm^2 Velocity ratio, peak, LVOT/AV 0.94 Aortic valve area, peak velocity 3 cm^2 Velocity ratio, mean, LVOT/AV 0.87 Aortic valve area, mean velocity 2.8 cm^2 Aortic valve area/bsa, mean velocity 1.3 cm^2/m^2 Aorta Value Reference Aortic root ID, ED 3.6 cm Ascending aorta ID, A-P, S 4.1 cm RVOT Value Reference RVOT VTI, S 13.5 cm Left atrium Value Reference LA ID, A-P, ES 2.9 cm LA ID/bsa, A-P Anesthesia Assessment and Plan Anesthesia History Personal History: No History of Anesthesia Complications Family History: No Family History of Anesthesia Complications Exercise Tolerance Exercise Tolerance: Metabolic Equivalents>4 Pertinent Negatives Pertinent Negatives: No Symptoms of GERD, No Major Cardiovascular Symptoms or Complaints and No History of CVA/TIA Cardiac & Pulmonary Exam Cardiac Exam: Normal S1/S2 Heart Sounds Pulmonary Exam: Clear Bilateral Breath Sounds Cardiac and Pulmonary Comment:: SPO2 92%, up to 94% with deep breathing, almost immediately drops SPO2 when not prompted to deep breathe. Implantable Cardiac Device Does patient have a Pacemaker or an ICD?: No Airway Exam Known Difficult Airway: No Mallampati Class: 2 Mouth Opening: Normal (> 3cm) Thyromental Distance: Greater than 3 cm Neck Range of Motion: Full ROM Neck Circumference: Normal Teeth Condition: Generalized Poor Dentition ASA Classification ASA Score: ASA 3 Emergency Case?: No NPO Status NPO Status: NPO Clears >2 hours, Solids >8 hours Anesthesia Plan Resuscitation Status: Full Code Anesthesia Technique: Primary Nerve Block Airway Planned: Natural Airway Pain Management: Surgeon and patient request nerve block Monitors Used: Standard Monitors
--- NOTE | 2023-03-01 11:06 | W.ANESNERVE ---
Nerve Block Single Injection Procedure Date and Time Date Performed: 03/01/23 Procedure Start: 10:44 Location Where Procedure Performed Procedure Location: Day Surgery Unit Reason Performed: Other (Primary nerve block) Requesting Provider: Alonso Lui Timeout Performed Timeout Performed: Yes Monitoring Used ECG, Blood Pressure and SpO2 Sterility Sterility: Hand Hygiene, Surgical Cap, Surgical Mask, Sterile Gloves and Chlorhexidine Sedation Given During Procedure Sedation Given (Indicate Dose Given): Versed IV Dose:: 1 mg Patient Mental Status Patient Mental Status: Awake Nerve Block 1st Nerve Block: Laterality: Left Block Type: Axillary Ultrasound Image Saved?: Yes Needle / Catheter Used: 100mm SonoPlex II Local Anesthetic Bolus (Indicate Dose Given): Lidocaine used for local infiltration of skin, Injected in 3-5ml increments after negative blood aspiration and Bupivacaine 0.5% Dose:: 20 ml Additives (Indicate Dose Given): Epinephrine to make 1:400,000 (2.5mcg/ml) Dose:: 50 mcg and Precedex Dose:: 30 mcg Ultrasound: Sterile probe cover and gel used Nerve Stimulator: Supplement to Ultrasound use and No twitch or parasthesia noted < 0.5 mA Paresthesia: None Procedure Tolerated: No Complications and Patient tolerated well Procedure Outcome: Successful Performed By: Mike Navarro
--- NOTE | 2023-03-01 11:32 | PDOC.DSDIS_ITS ---
Date of service: 03/01/23 Time of Service: 15:00 Discharge Plan Disposition Patient Disposition: Home Condition: Stable Discharge Details Attending Provider: Alonso Lui Primary Care Provider: Benja Etienne Home Meds and New Rx's Prescriptions: New naproxen 250 mg tablet 250 - 500 mg PO BID PRNQty: 30 0RF Rx Instructions: take with a meal tramadol 50 mg tablet 50 mg PO Q8H PRN (Reason: severe pain) Qty: 9 0RF Continued atenolol 25 mg tablet 25 mg PO DAILY clotrimazole 1 % cream 1 applic TP BID PRN atorvastatin 10 mg tablet 10 mg PO QPM triamcinolone acetonide 0.5 % cream 1 applic TP DAILY PRN cholecalciferol (vitamin D3) 1,000 unit capsule 1,000 unit PO DAILY vit A and D3 in cod liver oil [cod liver oil] 1 EACH capsule 1 cap PO DAILY psyllium husk [Metamucil] 0.52 GM capsule 6 cap PO DAILY amlodipine 10 mg tablet 10 mg PO DAILY Qty: 90 0RF Centrum Silver 1 EACH tablet 1 tab PO DAILY Discontinued ibuprofen 600 mg tablet 600 mg PO TID PRN Discharge Instructions Additional Instructions: Surgery: Left distal radius ORIF Activity: Nonweightbearing left wrist. Recommend elevation to minimize swelling and discomfort. Encourage range of motion to all fingers and thumb to prevent stiffness. Prescriptions: Naproxen 250 mg take 1-2 every 12 hours with a meal as needed for moderate pain Tramadol 50 mg take 1 every 6-8 hours as needed for severe pain You may use cyem-kzs-nwxkbxi Tylenol (acetaminophen) as needed for mild pain. Dressings: Leave splint and dressing in place until follow-up. Keep clean and dry at all times. Follow-up: 10-14 days with an orthopedic physician food and beverage assistant manager (with x-rays and transition to a Velcro brace) and [address] Lui You may take off the leg compression stockings this evening at home. You may also leave them on a few days longer if you have a history of leg swelling or edema. Let us know right away if you develop any redness, drainage, fevers, chest pain, or trouble breathing. Do not drink alcohol or drive for at least 24 hours after anesthesia. Please call the office during business hours with any questions or concerns. Discharge Orders Discharge Orders: Discharge Order (Routine); Ordered 03/01/23 Ordered By: Alonso Lui DS: Diagnosis Discharge Diagnosis (1) Fracture of left distal radius: Status: Acute
--- NOTE | 2023-03-01 11:32 | ROE_ITS ---
Date of service: 03/01/23 Time of Service: 14:00 Operative Note Operative Note DATE OF PROCEDURE: 03/01/23 PRE-OP DIAGNOSIS: Left intra-articular distal radius fracture POST-OP DIAGNOSIS: same PROCEDURE: Left intra-articular (3 fragments) distal radius fracture open reduction internal fixation, CPT #69371 SURGEON: Alonso Lui ONLINE MERCHANT: Gifty Kiser ANESTHESIA TYPE: Local By Surgeon, MAC and Primary Nerve Block Refer to Anesthesia Record ESTIMATED BLOOD LOSS: 5 TOURNIQUET TIME: 0 COMPLICATIONS: None Patient was transported to: PACU Patient's condition: stable Implants: Synthes 2.4 mm distal radius plate system with 5x distal 2.4 mm locking screws and 3x proximal 2.7mm cortex screws Indications: Please see complete medical record for details. Procedure Description: In the operating room, regional anesthesia was confirmed. The patient was positioned supine on the operating room table. All bony prominences were well- padded. Preoperative antibiotics were administered. The left wrist was prepped and draped in the usual sterile fashion. The correct patient, procedure, and side of the procedure were all verified prior to incision. The left forearm was examined. Radial pulse was readily palpable. Forearm compartments were soft. There was obvious volar deformity to the wrist. The planned incision was preinjected with 0.25% bupivacaine containing epinephrine. The modified volar Seun approach was used to the distal radius carefully retracting the radial artery radially, FCR tendon ulnarly, and then deeply sweeping the pronator quadratus from radial to ulnar. Care was taken to protect and retract these neurovascular structures throughout the case. The distal volar fracture was readily identified. Cleaned of soft tissue to visualize the fracture keep but otherwise soft tissue vascular attachments maintained radial ulnarly and distally. The intra-articular split was largely nondisplaced between the main fragments. The volar cortex was used as fracture askew to reduce these 2 fragments together dorsally to the remaining more posterior intra- articular fragment. Reduction was maintained with downward pressure over a bump. A wider distal radius plate was selected to provide volar buttress over both radial and ulnar column volar shear fragments. The plate was applied to the volar cortex and provisionally held in place with a proximal 2.7 mm cortex screw in the oblong hole. The plate was adjusted and slid distally using fluoroscopic guidance. An additional proximal cortex screw was drilled and placed. The plate was then removed and some of the volar contour taken out of it to better provide buttress effect and ensure maintenance of the volar Massey shear component of the fracture. The plate was reapplied using the previous screws and drill holes. The final proximal screw was drilled and filled. Distally a 2.4 mm cortex screw was placed centrally across the radial and ulnar column fragments engaging the far cortex and used to provide interfragmentary compression. An additional radial, central, and ulnar distal screws were drilled with fluoroscopic assistance and the variable angle locking guide and filled with appropriate lengthed 2.4 mm locking screws with a couple millimeters subtracted from the far cortex to ensure no dorsal penetration. The initial 2 distal cortex screws were then replaced with locking screws for increased construct strength. The fracture was examined and tested through range of motion and quite stable. C-arm fluoroscopy used to confirm appropriate fracture reduction and hardware placement. The wound was copiously irrigated normal saline. Hemostasis was appropriate. The radial artery was visualized intact. The pronator quadratus was allowed to reflect back over the plate. Subcutaneous tissue was closed using 2-0 Monocryl buried. Skin closed using 3-0 Monocryl running subcuticular. Steri-Strips applied across the incision followed by Xeroform, gauze and sterile soft roll. A volar plaster splint was then applied and appropriately molded to maintain the wrist in mild extension. The patient tolerated primary regional anesthesia without complication and was transferred to the recovery room in a stable condition. His wrist remained numb and comfortable. He demonstrated fairly intact motor flexion extensions all fingers and thumb.
[2023-03-01] MEDS: ceFAZolin 2 GM/50 ML BAG IVPB (11:42)
[2023-03-01] MEDS: Bupivacaine 0.25% Pres-Free 30 ML VIAL (12:05)
[2023-03-01] MEDS: EPINEPHrine 30 MG/30 ML VIAL (12:05)
--- NOTE | 2023-03-01 13:46 | DI.RAD_ITS ---
Exam(s) XR WRIST LT LIMITED EXAM: XR WRIST LT LIMITED CLINICAL HISTORY: LEFT WRIST FRACTURE TECHNIQUE: 2D and realtime digital imaging was performed. CONTRAST MATERIAL: Refer to procedure report. COMPARISON: CR XR WRIST LT COMPLETE from 02/28/2023 FINDINGS: Fluoroscopy was provided for Dr. Lui during the performance of a open reduction and internal fixat ion of the distal radial fracture. Please refer to the procedure report for complete details. Ka,r=0.42 mGy IMPRESSION: RADIATION DOSE DELIVERED:
[2023-03-01] MEDS: Ondansetron 4 MG/2 ML VIAL IVP (14:52)
--- NOTE | 2023-03-01 15:44 | W.ANESPOSTOP ---
Postoperative Evaluation Date, Time and Location Date Performed: 03/01/23 Time Performed: 15:44 Patient Location: Day Surgery Unit Vital Signs Most Recent Imported Vital Signs: Most Recent Vital Signs Temp Pulse Resp BP Pulse Ox 36.6 C 83 16 105/76 93 03/01/23 15:32 03/01/23 15:32 03/01/23 15:32 03/01/23 15:32 03/01/23 15:32 Pain Score Most Recent Pain Score: Most Recent Pain Score Pain Level 0 03/01/23 15:32 Assessment Mental Status: Awake (Alert & Oriented to Patient Baseline) Airway and Respiratory Function: Patent airway with normal (patient baseline) respiratory exam Cardiovascular Function: Hemodynamically Stable Hydration Status: Adequately Hydrated Nausea & Vomiting: Active Nausea or Vomiting Present Nausea and Vomiting Management: Nausea and vomiting active, being addressed with medication (Now subsiding, Zofran given per RN, patient wishing to be discharged home. ) Pain: Pt. Denies Any Pain Peripheral Nerve Block: Regional nerve block not resolved at time of post operative discharge
== END 2023-03-01 16:10 | disposition home or self-care (01) ==
PROVIDERS: PCP Family Medicine; Visit Provider Student in an Organized Health Care Education/Training Program
PROC: (CPT 25609; principal; 2023-03-01 11:15)
DX: S52.572A Other intraarticular fracture of lower end of left radius, initial encounter for closed fracture (principal); X58.XXXA Exposure to other specified factors, initial encounter; I10 Essential (primary) hypertension; E78.00 Pure hypercholesterolemia, unspecified
CPT/HCPCS: 25609; C1776; 76942; 73100; J0171; J0690; J2250; J2405; J3010

== ENCOUNTER → 2023-03-12 12:53 | Outpatient (BNVA) | payer MEDICARE, SELFPAY | PROVIDERS: PCP Family Medicine; Referring Provider Family Medicine ==

== ENCOUNTER 2023-03-12 13:51 | Outpatient (CLI) | payer MEDICARE, SELFPAY ==
--- NOTE | 2023-03-12 12:45 | DI.RAD_ITS ---
Exam(s) XR WRIST LT COMPLETE EXAM: XR WRIST LT COMPLETE CLINICAL HISTORY: s/p ORIF L DISTAL RADIUS. TECHNIQUE: 2D digital imaging was performed. Three images were obtained. AP, lateral and oblique vi ews were obtained. COMPARISON: CR XR WRIST LT COMPLETE from 02/28/2023 XA XR WRIST LT LIMITED from 03/01/2023 FINDINGS: BONES: There are stable post operative changes present. No new fracture or dislocation. JOINTS: The joint spaces are well maintained. There are marked degenerative changes seen at the 1st CMC joint characterized by joint space narrowing and osteophytes. SOFT TISSUE: Soft tissue swelling of the wrist. IMPRESSION: Stable postoperative changes of reduction and internal fixation of the distal left radial fracture. DATA REPOSITORY: RADIATION DOSE DELIVERED:
== END 2023-03-12 13:52 | disposition home or self-care (01) ==
LOC: DIORS 13:51
PROVIDERS: PCP Family Medicine; Visit Provider Physician Assistant
DX: S52.502D Unspecified fracture of the lower end of left radius, subsequent encounter for closed fracture with routine healing; X58.XXXD Exposure to other specified factors, subsequent encounter
CPT/HCPCS: 73110

== ENCOUNTER 2023-04-09 15:05 | Outpatient (CLI) | payer MEDICARE, SELFPAY ==
--- NOTE | 2023-04-09 13:30 | DI.RAD_ITS ---
Exam(s) XR WRIST LT LIMITED EXAM: XR WRIST LT LIMITED CLINICAL HISTORY: distal radius f/u. TECHNIQUE: 2D digital imaging was performed of the left wrist. Two images were obtained. PA and la teral views were obtained. COMPARISON: CR XR WRIST LT COMPLETE from 03/12/2023 FINDINGS: BONES: There is again seen an ORIF of the distal radial fracture. There is no significant change in alignment of the orthopedic hardware fracture components. No new fracture is seen. No bony destruct prema lesion is seen. JOINTS: The carpal bones are normally aligned. Degenerative changes are seen in the wrist particularl y at the 1st carpometacarpal joint. SOFT TISSUE: Normal. IMPRESSION: Stable alignment of the distal left radial fracture and orthopedic hardware. DATA REPOSITORY: RADIATION DOSE DELIVERED:
== END 2023-04-09 15:06 | disposition home or self-care (01) ==
LOC: DIORS 15:05
PROVIDERS: PCP Family Medicine; Referring Provider Family Medicine; Visit Provider Student in an Organized Health Care Education/Training Program
DX: S52.502D Unspecified fracture of the lower end of left radius, subsequent encounter for closed fracture with routine healing (principal); X58.XXXD Exposure to other specified factors, subsequent encounter
CPT/HCPCS: 73100

== ENCOUNTER → 2023-04-17 00:53 | Outpatient (CLI) | payer MEDICARE, SELFPAY ==
--- NOTE | 2023-04-17 07:30 | DI.CT_ITS ---
Exam(s) CT UPPER EXTREMITY LT WO EXAM: CT UPPER EXTREMITY LT WO CLINICAL HISTORY: increased volar angulation of distal radius fx,S52.502A TECHNIQUE: Imaging Protocol: Axial computed tomography images with coronal and sagittal reformatted images were created and reviewed. CONTRAST MATERIAL: None COMPARISON: CT CT UPPER EXTREMITY LT WO from 02/28/2023 CR XR WRIST LT COMPLETE from 03/12/2023 CR XR WRIST LT LIMITED from 04/09/2023 FINDINGS: OSSEOUS: There has been interval placement of a volar fixation plate. The distal most screw is 8 mm from the radiocarpal articular surface, as seen on the sagittal reconstructed images. There is an ar ticular surface gap of 7 mm between the main fracture fragments, as seen on the sagittal reconstructe d. On the coronal image the most lateral of the 5 screws securing the distal plate extends outside t he cortical surface. No evidence of osteomyelitis. No significant ulnar variance. Degenerative subarticular cysts are seen at the base of the ulnar sty loid but no ulnar styloid fracture. Scapholunate distance is normal. No scaphoid fracture evident. Degenerative cysts are noted multiple carpal row bones and there is advanced degenerative change at the 1st carpometacarpal joint noted. Images. IMPRESSION: Somewhat different appearance when compared to recent plain radiographs. See above discussion. RADIATION DOSE DELIVERED: Total DLP DATA REPOSITORY: All CT scans at this facility are submitted to the National Radiology Data Registry (NRDR) Dose Index Registry (DIR) with the [employer] (ACR). RADIATION OPTIMIZATION: All CT scans at this facility use at least one of these dose optimization te chniques: automated exposure control; mA and/or kV adjustment per patient size (includes targeted exa ms where dose is matched to clinical indication); or iterative reconstruction.
== END ==
PROVIDERS: PCP Family Medicine; Visit Provider Student in an Organized Health Care Education/Training Program
DX: S52.502D Unspecified fracture of the lower end of left radius, subsequent encounter for closed fracture with routine healing (principal); X58.XXXD Exposure to other specified factors, subsequent encounter
CPT/HCPCS: 73200

== ENCOUNTER 2023-04-19 07:32 | Day surgery (SDC) | payer MEDICARE, SELFPAY ==
[2023-04-19] VITALS (11 sets, daily range): BP systolic 92–160; BP diastolic 64–92; PULSE 76–99; RESP 11–23; TEMP 36.3–37.1; O2SAT 94–97; BMI 29.2
--- NOTE | 2023-04-19 07:29 | ROE_ITS ---
Date of service: 04/19/23 Time of Service: 11:30 Operative Note Operative Note DATE OF PROCEDURE: 04/19/23 PRE-OP DIAGNOSIS: Left intra-articular distal radius fracture failure of fixation POST-OP DIAGNOSIS: same PROCEDURE: Left intra-articular (3 fragments) revision distal radius fracture open reduction internal fixation, CPT #62996, including removal of deep hardware, CPT# 05522 SURGEON: Alonso Lui VEHICLE WINDOW TINTER: Gifty Kiser ANESTHESIA TYPE: Local By Surgeon, MAC and Primary Nerve Block Refer to Anesthesia Record ESTIMATED BLOOD LOSS: 15 TOURNIQUET TIME: 0 COMPLICATIONS: None Patient was transported to: PACU Patient's condition: stable Implants: Synthes 2.4 mm distal radius plate system with 5x distal 2.4 mm locking screws and 3x proximal 2.7mm cortex screws Indications: Please see complete medical record for details. Findings: Placed lunate facet, soft impacted bone, impossible to reduce and maintain in reduced position. Procedure Description: In the operating room, regional anesthesia was confirmed. The patient was positioned supine on the operating room table. All bony prominences were well- padded. Preoperative antibiotics were administered. The left wrist was prepped and draped in the usual sterile fashion. The correct patient, procedure, and side of the procedure were all verified prior to incision. The left forearm was examined. Radial pulse was readily palpable. Forearm compartments were soft. There was obvious deformity to the wrist. They previously used incision was preinjected with 15cc of 0.25% bupivacaine containing epinephrine. The modified volar Seun approach was used to the distal radius carefully retracting the radial artery radially, FCR tendon ulnarly, and then deeply sweeping the pronator quadratus from radial to ulnar. Care was taken to protect and retract these neurovascular structures throughout the case. The distal volar plate was readily identified. Cleaned of soft tissue to visualize fracture fragment of the lunate facet displaced distally compressed and rotated over the existing hardware. The distal screws and proximal screws were readily removed. The previous plate was removed. The fr acture fragments were attempted to immobilize, they did not move at all. Soft tissue attachments were cleared on the radial ulnar and volar surface. As best possible wrist and distal attachments were maintained to preserve vascularity. Both direct pressure and manual reduction moves were unsuccessful in maneuvering the distal radius fracture fragments. Using fluoroscopic guidance for years and elevators were inserted between the lunate facet and the distal radius as well as the intra-articular segments and as best possible lever and maneuvered into a reduced position. The bone was significantly soft and compressed and deformed from the prior failure and indentation into the plate. It was extremely challenging to reduce the lunate facet and maintain the radiocarpal alignment. Really the only way to maintain it was with a askew elevator directly lifting up the volar bone fragments. The amount of force required elevated the entire distal radius fracture from volar angulation to neutral angulation. No additional pressure could be done to maintain the volar Massey fracture reduced. A similar size distal radius plate was applied to the volar wrist in the glide hole with cortex screw, it was then removed and contoured especially under contoured on the lunate side, for later compression best attempt to maintain any improved reduction. The plate was then reapplied and adjusted into the best position possible having more card ridge distal and ulnar than usual for this bone fragment. The most distal bicortical screw was lightly tightened, and additional more proximal screw was predrilled and lightly tightened, the most proximal screw was then predrilled and final tightened and then sequentially from proximal distal each was final tightened and compressed while viewing under lateral fluoroscopy attempting to use the plate to buttress and compress improve and/or maintain the reduction. It was marginally successful. Some tension was removed and reapplied but it was impossible to improve the lunate facet and radiocarpal alignment without translating the whole distal radius dorsally. There were no other maneuvers with or without the plate that I could figure would improve the fracture alignment. Given the advanced age and poor bone quality, decision was made to except the malalignment. The distal screw holes were predrilled and filled with appropriate length locking screws taking care to prevent for cortical perforation. Distal bone quality was quite poor. C-arm fluoroscopy was used throughout the case with multiple stages and steps documenting the challenges. Final images were taken ensuring no cortical or joint perforation of the screws. The lunate facet was probably reduced compared to the ANA CRISTINA images, but not held in an ideal position, the radiocarpal alignment was still poor, on oblique view there is probably still point loading of the lunate on step-off somewhat volarly. Unfortunate, this could not be improved. The wound was copiously irrigated normal saline. Hemostasis was appropriate although there was a slow steady venous ooze from the previous bone holes. The radial artery was intact. The remaining pronator quadratus was allowed to reflect back over the plate. Subcutaneous tissue was reapproximated using 2-0 Monocryl buried. Skin closed using 3-0 Monocryl interrupted subcuticular.. Steri-Strips applied across the incision followed by Xeroform, gauze and sterile soft roll. A volar plaster splint was then applied and appropriately molded to maintain the wrist in neutral position. The patient tolerated primary regional anesthesia without complication and was transferred to the recovery room in a stable condition. Pulse oximetry demonstrated excellent waveform at the thumb and small fingers.
--- NOTE | 2023-04-19 07:29 | PDOC.DSDIS_ITS ---
Date of service: 04/19/23 Time of Service: 15:00 Discharge Plan Disposition Patient Disposition: Home Condition: Stable Discharge Details Reason For Visit: Left wrist fracture Attending Provider: Alosno Lui Primary Care Provider: Benja Etienne Home Meds and New Rx's Prescriptions: Continued atenolol 25 mg tablet 25 mg PO DAILY clotrimazole 1 % cream 1 applic TP BID PRN atorvastatin 10 mg tablet 10 mg PO QPM triamcinolone acetonide 0.5 % cream 1 applic TP DAILY PRN cholecalciferol (vitamin D3) 1,000 unit capsule 1,000 unit PO DAILY vit A and D3 in cod liver oil [cod liver oil] 1 EACH capsule 1 cap PO DAILY psyllium husk [Metamucil] 0.52 GM capsule 6 cap PO DAILY Centrum Silver 1 EACH tablet 1 tab PO DAILY amlodipine 10 mg tablet 10 mg PO HS ibuprofen [IBU] 600 mg tablet 600 mg PO TID-QID PRN Discharge Instructions Additional Instructions: Surgery: Left distal radius revision ORIF Activity: Non-weightbearing left wrist. Recommend elevation to minimize swelling and discomfort. Encourage range of motion to all fingers and thumb to prevent stiffness. Prescriptions: No new, may use ibuprofen for moderate swelling and pain, acetaminophen for mild discomfort. Use previously prescribed tramadol 50 mg take 1 every 6-8 hours as needed for severe pain (observe for any facial rash and discontinue if occurs) You may use [id number] Benadryl (diphenhydramine) 25?50 mg as needed for any rash, hives, or allergic reaction Dressings: Leave splint and dressing in place until follow-up. Keep clean and dry at all times. Follow-up: 10-[address] Lui You may take off the leg compression stockings this evening at home. You may also leave them on a few days longer if you have a history of leg swelling or ed soila. Let us know right away if you develop any redness, drainage, fevers, chest pain, or trouble breathing. Do not drink alcohol or drive for at least 24 hours after anesthesia. Please call the office during business hours with any questions or concerns. DS: Diagnosis Discharge Diagnosis (1) Fracture of left distal radius: Status: Acute
--- NOTE | 2023-04-19 08:34 | W.ANESPRE ---
General Info Date of Service Date Performed: 04/19/23 Height: 5 ft 10 in Weight: 92.5 kg Body Mass Index (BMI): 29.2 Surgical Procedure: Operation Date: 04/19/23 10:25 Proposed Procedure Side Surgeon p Wrist ORIF Distal Radius Revision Left Alonso Lui MD Meds Allergies and Home Medications Allergies Allergy/AdvReac Type Severity Reaction Status Date / Time lisinopril Allergy Mild Other (See Verified 04/18/23 11:18 Comment) tramadol Allergy Mild Verified 04/18/23 11:18 tomato Allergy Hives Unverified 04/18/23 11:18 Home Medication Medication Instructions Recorded vitamins A and D3 in cod liver oil 1 cap PO DAILY 10/07/12 1,250 unit-135 unit capsule (cod liver oil) rcylpnio-wdj-uciwk acid 0.4 1 tab PO DAILY 03/30/13 mg-lycopene 300 mcg-lutein 250 mcg tablet (Centrum Silver) psyllium husk 0.52 gram capsule 6 cap PO DAILY 07/24/17 (Metamucil) atenolol 25 mg tablet 25 mg PO DAILY 03/04/18 atorvastatin 10 mg tablet 10 mg PO QPM 03/04/18 clotrimazole 1 % topical cream 1 applic topical BID PRN 03/04/18 triamcinolone acetonide 0.5 % 1 applic topical DAILY PRN 03/04/18 topical cream cholecalciferol (vitamin D3) 25 1,000 unit PO DAILY 01/08/19 mcg (1,000 unit) capsule amlodipine 10 mg tablet 10 mg PO HS 04/18/23 ibuprofen 600 mg tablet (IBU) 600 mg PO TID-QID PRN 04/19/23 Current Visit Medications: Current Medications Generic Name Dose Route Start Last Admin Trade Name Freq PRN Reason Stop Dose Admin Ringer's Solution 1,000 mls @ 30 mls/hr 04/19/23 06:00 IV 04/19/23 23:59 INFUSION PEDRITO Cefazolin Sodium/Dextrose 2 gm in 50 mls @ 100 mls/hr 04/19/23 06:00 Ancef Duplex IVPB 04/19/23 23:59 PREOP PEDRITO IV Miscellaneous Supplies 1 each 04/19/23 06:00 Iv Access IV 04/19/23 23:59 DIRECTED PEDRITO Sodium Chloride 0 ml 04/19/23 06:00 Normal Saline Flush 10 Ml Syr IV 04/19/23 23:59 PRN PRN Sodium Chloride 0 ml 04/19/23 06:00 Normal Saline 10 Ml Vial IJ 04/19/23 23:59 DIRECTED PRN Sterile Water 0 ml 04/19/23 06:00 Water,Injection,Sterile 10 Ml Vial IJ 04/19/23 23:59 DIRECTED PRN PFSH Active Problems Active Problems: Problem Status Onset Code Fracture of left distal radius 02/28/23 S52.502A Black head L70.0 Infected sebaceous cyst of skin L72.3, L08.9 Sensorineural hearing loss H90.5 Arthritis M19.90 Sebaceous cyst L72.3 Allergic rhinitis J30.9 Pruritus ani L29.0 Health maintenance examination Z00.00 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 exposure High cholesterol HTN (hypertension) Surgical History Surgical History History of colonoscopy History of adenoidectomy History of prostate biopsy History of tonsillectomy Tonsillectomy and adenoidectomy Tobacco Smoking/Tobacco Use Status: Former Tobacco Use Passive smoking exposure: Yes Second hand exposure: Yes Alcohol Alcohol Intake: current Alcohol intake frequency: a few times a week Alcohol type: beer, wine and hard liquor Substance Use Substance use: Never Substance use type: does not use Vital Signs and Lab Results Vital Signs Most Recent Vital Signs in EMR: Most Recent Vital Signs Temp Pulse Resp BP Pulse Ox 37.1 C 99 H 20 160/84 H 95 04/19/23 08:00 04/19/23 08:00 04/19/23 08:00 04/19/23 08:00 04/19/23 08:00 Lab Results Blood Type / Crossmatch: No Data to Display Complete Blood Count: No Data to Display Complete Metabolic Panel: No Data to Display Liver Function Panel: No Data to Display Coagulation Panel: No Data to Display Cardiac Panel: No Data to Display Arterial Blood Gas: No Data to Display Venous Blood Gas: No Data to Display Pancreas Panel: No Data to Display Thyroid Panel: No Data to Display Infectious Disease: No Data to Display Blood Cultures: No Data to Display Toxicology Panel: No Data to Display Imaging and Studies Imaging and Studies Study information below may be from another EMR and interpreted by another provider. Please see original notes in EMR for more complete details. Echocardiogram Summary: Patient Name: AUSTYN LARSON #: [id number]: DI Ordering Provider: Natacha Lynch M.D. : REG CLI Primary Care Provider: Natacha Lynch M.D.Date of Exam: 12/19/17ex: M : 8Age: 72 Exam(s) [id number] US:Echocardiogram Heart *[facility]* *[facility]* [address] [place] [address] Date of study: 12/19/2017 Transthoracic Echocardiography M-mode, complete 2D, complete spectral Doppler, and color Doppler *STUDY CONCLUSIONS* Summary: 1. Left ventricle: The cavity size was normal. Systolic function was normal. The estimated ejection fraction was 60-65%. Diastolic parameters were normal for age. There was no evidence of elevated ventricular filling pressure by Doppler parameters. 2. Mitral valve: There was mild regurgitation. 3. Right ventricle: The cavity size was mildly dilated. Systolic function was mildly reduced. 4. Atrial septum: No defect or patent foramen ovale was identified. 5. Pulmonary arteries: Pulmonary systolic pressure was in the range of 25mm Hg to 35mm Hg. 6. Inferior vena cava: The vessel was normal in size. The respirophasic diameter changes were in the normal range (greater than or equal to 50%), consistent with normal central venous pressure. *PATIENT PRESENTATION* Height: 180.3cm ((71in) ) S/D Pressure: 133 / 78 Weight: 90.7kg ((199.6lb) ) BSA: 2.11m^2 Test start time: 10:10 AM. Test stop time: 11:10 AM. PERFORMING Unknown ORDERING Natacha Lynch REFERRING Natacha Lynch PERFORMING [facility] CHIEF OF PARTY RT Ozzie Valladares)(CT), MONICA *PROCEDURE DATA* Procedure information: The patient was identified by two identifiers. This study was interpreted by [facility]. Pertinent images and digital data are archived for permanent storage and are available for subsequent review. No prior study was available for comparison. Study status: Routine. Transthoracic echocardiography. M-mode, complete 2D, complete spectral Doppler, and color Doppler. A Transthoracic Echocardiogram was performed. Scanning was performed from the parasternal, apical, subcostal, and suprasternal notch acoustic windows. Images were obtained using an [id number] cardiac ultrasound machine. Image quality was adequate. Study completion: The patient tolerated the procedure well. *CARDIAC ANATOMY* Left ventricle: The cavity size was normal. Systolic function was normal. The estimated ejection fraction was 60-65%. The tissue Doppler parameters were normal. Diastolic parameters were normal for age. There was no evidence of elevated ventricular filling pressure by Doppler parameters. Aortic valve: Trileaflet. Doppler: There was no stenosis. There was no regurgitation. VTI ratio of LVOT to aortic valve: 0.99. Valve area (VTI): 3.1cm^2. Indexed valve area (VTI): 1.5cm^2/m^2. Peak velocity ratio of LVOT to aortic valve: 0.94. Valve area (Vmax): 3cm^2. Indexed valve area (Vmax): 1.4cm^2/m^2. Mean velocity ratio of LVOT to aortic valve: 0.87. Valve area (Vmean): 2.8cm^2. Indexed valve area (Vmean): 1.3cm^2/m^2. Mean gradient (S): 4.5mm Hg. Peak gradient (S): 8.4mm Hg. Aorta: Aortic root: The aortic root was normal in size. Ascending aorta: The ascending aorta was mildly dilated. Mitral valve: Doppler: There was no evidence for stenosis. There was mild regurgitation. Valve area by pressure half-time: 2.6cm^2. Indexed valve area by pressure half-time: 1.2cm^2/m^2. Peak gradient (D): 2.4mm Hg. Left atrium: The atrium was normal in size. Atrial septum: No defect or patent foramen ovale was identified. Right ventricle: The cavity size was mildly dilated. Systolic function was mildly reduced. Pulmonic valve: Doppler: There was no evidence for stenosis. There was mild regurgitation. Peak gradient (S): 3.1mm Hg. Tricuspid valve: Doppler: There was mild regurgitation. Pulmonary artery: Poorly visualized. Pulmonary systolic pressure was in the range of 25mm Hg to 35mm Hg. Right atrium: The atrium was normal in size. Pericardium: There was no pericardial effusion. Systemic veins: Inferior vena cava: The vessel was normal in size. The respirophasic diameter changes were in the normal range (greater than or equal to 50%), consistent with normal central venous pressure. Measurements Left ventricle Value Reference LV ID, ED, PLAX 4.6 cm 3.5 - 6.0 LV ID, ES, PLAX 2.8 cm 2.1 - 4.0 LV PW thickness, ED, PLAX 0.9 cm LV end-diastolic volume, 1-p A2C 61 ml LV ejection fraction, 1-p A2C 58 % LV end-diastolic volume, 1-p A4C 67 ml LV ejection fraction, 1-p A4C 65 % LV e', lateral 0.143 m/sec LV E/e', lateral 5 LV e', medial 0.067 m/sec LV E/e', medial 12 LV e', average 0.105 m/sec LV E/e', average 7 Ventricular septum Value Reference IVS thickness, ED, PLAX 0.9 cm LVOT Value Reference LVOT ID, A-P 2.0 cm LVOT area 3.2 cm^2 LVOT peak velocity, S 1.36 m/sec LVOT mean velocity, S 0.88 m/sec LVOT VTI, S 27.3 cm LVOT peak gradient, S 7.4 mm Hg LVOT mean gradient, S 3.6 mm Hg Stroke volume (SV), LVOT DP 87 ml Stroke index (SV/bsa), LVOT DP 41 ml/m^2 Aortic valve Value Reference Aortic valve peak velocity, S 1.4 m/sec Aortic valve mean velocity, S 1.01 m/sec Aortic valve VTI, S 27.7 cm Aortic mean gradient, S 4.5 mm Hg Aortic peak gradient, S 8.4 mm Hg VTI ratio, LVOT/AV 0.99 Aortic valve area, VTI 3.1 cm^2 Velocity ratio, peak, LVOT/AV 0.94 Aortic valve area, peak velocity 3 cm^2 Velocity ratio, mean, LVOT/AV 0.87 Aortic valve area, mean velocity 2.8 cm^2 Aortic valve area/bsa, mean velocity 1.3 cm^2/m^2 Aorta Value Reference Aortic root ID, ED 3.6 cm Ascending aorta ID, A-P, S 4.1 cm RVOT Value Reference RVOT VTI, S 13.5 cm Left atrium Value Reference LA ID, A-P, ES 2.9 cm LA ID/bsa, A-P Anesthesia Assessment and Plan Anesthesia History Personal History: PONV Family History: No Family History of Anesthesia Complications Exercise Tolerance Exercise Tolerance: Metabolic Equivalents>4 Pertinent Negatives Pertinent Negatives: No Symptoms of GERD and No History of CVA/TIA Cardiac & Pulmonary Exam Cardiac Exam: Normal S1/S2 Heart Sounds Pulmonary Exam: Clear Bilateral Breath Sounds Cardiac and Pulmonary Comment:: Last anesthetic: SPO2 92%, up to 94% with deep breathing, almost immediately drops SPO2 when not prompted to deep breathe. Implantable Cardiac Device Does patient have a Pacemaker or an ICD?: No Airway Exam Known Difficult Airway: No Mallampati Class: 2 Mouth Opening: Normal (> 3cm) Thyromental Distance: Greater than 3 cm Neck Range of Motion: Full ROM Neck Circumference: Normal Teeth Condition: Generalized Poor Dentition ASA Classification ASA Score: ASA 3 Emergency Case?: No NPO Status NPO Status: NPO Clears >2 hours, Solids >8 hours Anesthesia Plan Resuscitation Status: Full Code Anesthesia Technique: Primary Nerve Block Airway Planned: Natural Airway Pain Management: Surgeon and patient request nerve block Monitors Used: Standard Monitors Preoperative Comments::
[2023-04-19] MEDS: Lactated Ringers 1,000 ML 30 ML IV (08:54)
--- NOTE | 2023-04-19 10:38 | W.ANESNERVE ---
Nerve Block Single Injection Procedure Date and Time Date Performed: 04/19/23 Procedure Start: 10:20 Location Where Procedure Performed Procedure Location: Day Surgery Unit Reason Performed: Other (Primary nerve block) Requesting Provider: Alonso Lui Timeout Performed Timeout Performed: Yes Monitoring Used ECG, Blood Pressure and SpO2 Sterility Sterility: Hand Hygiene, Surgical Cap, Surgical Mask, Sterile Gloves and Chlorhexidine Sedation Given During Procedure Sedation Given (Indicate Dose Given): Versed IV Dose:: 1 mg Patient Mental Status Patient Mental Status: Sedate with meaningful communication Nerve Block 1st Nerve Block: Laterality: Left Block Type: Axillary Ultrasound Image Saved?: Yes Needle / Catheter Used: 100mm SonoPlex II Local Anesthetic Bolus (Indicate Dose Given): Lidocaine used for local infiltration of skin, Injected in 3-5ml increments after negative blood aspiration and Bupivacaine 0.5% Dose:: 20 ml Additives (Indicate Dose Given): Epinephrine to make 1:400,000 (2.5mcg/ml) Dose:: 50 mcg and Precedex Dose:: 30 mcg Ultrasound: Sterile probe cover and gel used Nerve Stimulator: Supplement to Ultrasound use and No twitch or parasthesia noted < 0.5 mA Paresthesia: None Post Procedure Pain score (0-10): 0 Procedure Tolerated: No Complications and Patient tolerated well Procedure Outcome: Successful Performed By: Mike Navarro Other (not listed above): Primary nerve block. Can head to OR at 1120
[2023-04-19] MEDS: ceFAZolin 2 GM/50 ML BAG IVPB (11:30)
[2023-04-19] MEDS: EPINEPHrine 1 MG/ML AMP pres-free (14:04)
[2023-04-19] MEDS: Bupivacaine 0.25% Pres-Free 30 ML VIAL (14:04)
--- NOTE | 2023-04-19 14:16 | DI.RAD_ITS ---
Exam(s) XR WRIST LT LIMITED EXAM: XR WRIST LT LIMITED CLINICAL HISTORY: LEFT WRIST FRACTURE. TECHNIQUE: 2D and realtime digital imaging was performed. COMPARISON: CR XR WRIST LT COMPLETE from 03/12/2023 CR XR WRIST LT LIMITED from 04/09/2023 FINDINGS: Fluoroscopy was provided in the OR for Dr. Wolf. Hard copy images show removal of previous previou sly existing volar fixation plate and placement of a new fixation plate with improved overall alignme nt of distal radial fracture. Please see procedure note for details. Fluoro time: 85.8seconds RADIATION DOSE DELIVERED: [email or web address] Maldonado=1.44 mGy
--- NOTE | 2023-04-19 15:30 | W.ANESPOSTOP ---
Postoperative Evaluation Date, Time and Location Date Performed: 04/19/23 Time Performed: 15:30 Patient Location: Day Surgery Unit Vital Signs Most Recent Imported Vital Signs: Most Recent Vital Signs Temp Pulse Resp BP Pulse Ox 36.3 C L 83 16 135/85 94 04/19/23 15:19 04/19/23 15:19 04/19/23 15:19 04/19/23 15:19 04/19/23 15:19 Pain Score Most Recent Pain Score: Most Recent Pain Score Pain Level 0 04/19/23 15:19 Assessment Mental Status: Awake (Alert & Oriented to Patient Baseline) Airway and Respiratory Function: Patent airway with normal (patient baseline) respiratory exam Cardiovascular Function: Hemodynamically Stable Hydration Status: Adequately Hydrated Nausea & Vomiting: No Nausea or Vomiting Pain: Pt. Denies Any Pain Peripheral Nerve Block: Regional nerve block not resolved at time of post operative discharge
== END 2023-04-19 16:40 | disposition home or self-care (01) ==
PROVIDERS: PCP Family Medicine; Visit Provider Student in an Organized Health Care Education/Training Program
PROC: (CPT 25609; principal; 2023-04-19 10:15)
DX: S52.502A Unspecified fracture of the lower end of left radius, initial encounter for closed fracture (principal); X58.XXXA Exposure to other specified factors, initial encounter
CPT/HCPCS: 25609; C1889; 76942; 73100; J0131; J0171; J0690; J2250; J2405; J3010

== ENCOUNTER 2023-05-01 11:43 | Outpatient (CLI) | payer MEDICARE, SELFPAY ==
--- NOTE | 2023-05-01 11:00 | DI.RAD_ITS ---
Exam(s) XR WRIST LT COMPLETE EXAM: XR WRIST LT COMPLETE CLINICAL HISTORY: left wrist f/u. TECHNIQUE: 2D digital imaging was performed of the left wrist. Three images were obtained. PA, obl ique and lateral views were obtained. COMPARISON: CR XR WRIST LT COMPLETE from 03/12/2023 CR XR WRIST LT LIMITED from 04/09/2023 FINDINGS: BONES: There again seen findings of an ORIF of the distal left radial fracture. There has been no ch sara in alignment of the orthopedic hardware fracture components. The changes may be due to the diff erence in obliquity of the image. No new fracture is seen. No bony destructive lesion is seen. JOINTS: The carpal bones are normally aligned. There are marked degenerative changes seen at the 1st CMC joint. SOFT TISSUE: Soft tissue swelling of the wrist. IMPRESSION: Stable ORIF of the distal radius. DATA REPOSITORY: RADIATION DOSE DELIVERED:
== END 2023-05-01 11:44 | disposition home or self-care (01) ==
LOC: DIORS 11:43
PROVIDERS: PCP Family Medicine; Referring Provider Family Medicine; Visit Provider Student in an Organized Health Care Education/Training Program
DX: S52.502D Unspecified fracture of the lower end of left radius, subsequent encounter for closed fracture with routine healing; X58.XXXD Exposure to other specified factors, subsequent encounter
CPT/HCPCS: 73110

== ENCOUNTER 2023-05-29 13:33 | Outpatient (CLI) | payer MEDICARE, SELFPAY ==
--- NOTE | 2023-05-29 10:45 | DI.RAD_ITS ---
Exam(s) XR WRIST LT COMPLETE EXAM: XR WRIST LT COMPLETE CLINICAL HISTORY: left distal radius fx s/p ORIF. TECHNIQUE: 2D digital imaging was performed. Three views. COMPARISON: CR XR WRIST LT COMPLETE from 05/01/2023 FINDINGS: BONES: There has been no change in the alignment of the distal radial fracture or fixation plate. Th ere has been some interval healing since the previous exam. Bones are osteopenic. JOINTS: The carpal bones are normally aligned. Severe degenerative changes at the 1st carpal metaca rpal joint. SOFT TISSUE: Normal. IMPRESSION: Stable fracture alignment. DATA REPOSITORY: RADIATION DOSE DELIVERED:
== END 2023-05-29 13:34 | disposition home or self-care (01) ==
LOC: DIORS 13:33
PROVIDERS: PCP Family Medicine; Referring Provider Family Medicine; Visit Provider Student in an Organized Health Care Education/Training Program
DX: S52.502D Unspecified fracture of the lower end of left radius, subsequent encounter for closed fracture with routine healing (principal); X58.XXXD Exposure to other specified factors, subsequent encounter
CPT/HCPCS: 73110

== ENCOUNTER 2023-07-03 14:24 | Outpatient (CLI) | payer MEDICARE, SELFPAY ==
--- NOTE | 2023-07-03 10:57 | DI.RAD_ITS ---
Exam(s) XR WRIST LT LIMITED EXAM: XR WRIST LT LIMITED CLINICAL HISTORY: F/U ORIF. TECHNIQUE: 2D digital imaging was performed. Two images were obtained. PA and lateral views were ob tained. COMPARISON: CR XR WRIST LT LIMITED from 04/09/2023 CR XR WRIST LT COMPLETE from 05/29/2023 FINDINGS: BONES: There are stable post operative changes present. The distal radial fracture appears well heal ed. There is now and comminuted subacute healing fracture involving the neck of the left 5th metacar pal bone. There is anterior angulation of the distal fracture. JOINTS: Degenerative changes are seen in the wrist particularly at the 1st carpometacarpal joint. SOFT TISSUE: Normal. IMPRESSION: 1. Stable postoperative changes in the left radius. The fracture appears well healed. 2. Subacute healing fracture involving the neck of the left 5th metacarpal. DATA REPOSITORY: RADIATION DOSE DELIVERED:
== END 2023-07-03 14:25 | disposition home or self-care (01) ==
LOC: DIORS 14:24
PROVIDERS: PCP Family Medicine; Referring Provider Family Medicine; Visit Provider Student in an Organized Health Care Education/Training Program
DX: S52.502D Unspecified fracture of the lower end of left radius, subsequent encounter for closed fracture with routine healing (principal); S62.307D Unspecified fracture of fifth metacarpal bone, left hand, subsequent encounter for fracture with routine healing; X58.XXXD Exposure to other specified factors, subsequent encounter
CPT/HCPCS: 73100

== ENCOUNTER 2024-07-14 15:26 | Outpatient (CLI) | payer OTHER, SELFPAY ==
--- NOTE | 2024-07-14 13:16 | DI.RAD_ITS ---
Exam(s) XR SHOULDER LT COMPLETE 2+V EXAM: XR SHOULDER LT COMPLETE 2+V CLINICAL HISTORY: LEFT SHOULDER PAIN. TECHNIQUE: 2D digital imaging was performed. Two views. COMPARISON: No exams were available for comparison FINDINGS: BONES: No acute fracture is present. No bony destructive lesion is seen. Spurring at greater tuberos ity. JOINTS: No dislocation present. There is severe narrowing of the glenohumeral joint. No significant periarticular spurring. Subchondral cysts noted in humeral head. AC joint shows mild inferior spur ring. SOFT TISSUE: Normal. 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 DATA REPOSITORY: RADIATION DOSE DELIVERED:
== END 2024-07-14 15:27 | disposition home or self-care (01) ==
LOC: DIORS 15:27
PROVIDERS: PCP Family Medicine; Visit Provider Student in an Organized Health Care Education/Training Program
DX: M25.512 Pain in left shoulder (principal)
CPT/HCPCS: 73030